=== PATIENT | male | born 1945 | race Caucasian/White ===

== ENCOUNTER 2020-03-28 10:00 | Emergency (ER) | payer MEDICARE, BC ==
[~2020-03-28 10:00] MED LIST: DEXAMETHASONE0.5 MG PO; FLOMAX 0.4 MG0.4 MG PO; LIPITOR10 MG PO; MELATONIN3 MG PO; METAMUCIL PLUS1 EACH PO; MIRALAX17 GM PO; MIRTAZAPINE30 MG PO; NORVASC5 MG PO; XARELTO20 MG PO; ZOLOFT50 MG PO
[2020-03-28 10:57] LABS: HEMOGLOBIN 8.9 gm/dl (14.0-17.5); RED BLOOD COUNT 3.07 M/UL (4.20-5.50); WHITE BLOOD COUNT 28.1 K/UL (4.5-11.0)
[2020-03-28 11:21] LABS: BUN/CREATININE RATIO 33 (0-10)
== END 2020-03-28 14:01 | disposition home or self-care (01) ==
LOC: ER1 10:00
PROVIDERS: Family Medicine
DX: E86.0 Dehydration (principal); I48.91 Unspecified atrial fibrillation; I95.9 Hypotension, unspecified; J90 Pleural effusion, not elsewhere classified; D64.9 Anemia, unspecified; D72.89 Other specified disorders of white blood cells; I10 Essential (primary) hypertension; E78.5 Hyperlipidemia, unspecified; Z79.01 Long term (current) use of anticoagulants; Z85.831 Personal history of malignant neoplasm of soft tissue; Z91.041 Radiographic dye allergy status
CPT/HCPCS: 36415; 71045; 80053; 81001; 83605; 83735; 85025; 87077; 87086; 87186; 93005; 96374; 99284; J0696; J1160; J7030

== ENCOUNTER 2020-04-02 16:58 | Inpatient (IN) | payer MEDICARE, BC ==
[~2020-04-02] VITALS: Ht 167.6 cm; Wt 43.1 kg
[2020-04-02 18:10] LABS: HEMOGLOBIN 7.5 gm/dl (14.0-17.5); RED BLOOD COUNT 2.51 M/UL (4.20-5.50); WHITE BLOOD COUNT 18.5 K/UL (4.5-11.0)
[2020-04-02 18:32] LABS: BUN/CREATININE RATIO 29 (0-10)
[2020-04-02 21:57] LABS: BUN/CREATININE RATIO 27 (0-10)
[2020-04-03 04:54] LABS: HEMOGLOBIN 9.5 gm/dl (14.0-17.5); RED BLOOD COUNT 3.19 M/UL (4.20-5.50); WHITE BLOOD COUNT 27.8 K/UL (4.5-11.0)
[2020-04-03 07:53] LABS: BUN/CREATININE RATIO 30 (0-10)
== END 2020-04-03 11:33 | disposition expired | DRG 871 ==
LOC: ER1 16:58 → CDU 04-03 02:56
PROVIDERS: Family Medicine; ADMIT Internal Medicine
PROC: 0W9B3ZX Drainage of Left Pleural Cavity, Percutaneous Approach, Diagnostic (ICD-10-PCS; principal; 2020-04-03)
DX: A41.9 Sepsis, unspecified organism (principal); R65.21 Severe sepsis with septic shock; J96.01 Acute respiratory failure with hypoxia; C49.9 Malignant neoplasm of connective and soft tissue, unspecified; C78.01 Secondary malignant neoplasm of right lung; J90 Pleural effusion, not elsewhere classified; J98.11 Atelectasis; E87.1 Hypo-osmolality and hyponatremia; D64.9 Anemia, unspecified; Z89.612 Acquired absence of left leg above knee; I48.0 Paroxysmal atrial fibrillation; I10 Essential (primary) hypertension; D63.8 Anemia in other chronic diseases classified elsewhere; E03.9 Hypothyroidism, unspecified; F10.10 Alcohol abuse, uncomplicated; E78.5 Hyperlipidemia, unspecified; E86.0 Dehydration; Z66 Do not resuscitate; I48.91 Unspecified atrial fibrillation; I95.9 Hypotension, unspecified; Z51.5 Encounter for palliative care
CPT/HCPCS: ECHO; 11740; 36415; 36430; 36591; 51702; 71045; 80048; 80053; 81001; 82607; 82728; 82746; 82945; 83540; 83550; 83605; 83615; 83735; 84100; 84157; 85025; 85610; 86850; 86900; 86901; 86920; 87040; 87070; 87086; 89051; 93005; 93306; 96365; 96366; 96367; 96368; 96375; 96376; 99285; J0696; J1720; J2185; J2370; J2543; J3370; J3430; J7030; J7070; P9016; P9047; U0002